=== PATIENT | male | born 2000 | race African-American/Black ===

== ENCOUNTER 2020-11-10 10:19 | Inpatient (IN) ==
[2020-11-10] MEDS ORDERED: ONDANSETRON INJ 2 MG/ML 2 ML VIAL IV STA (10:37)
[2020-11-10] MEDS ORDERED: SODIUM CHLORIDE 0.9% 1000ML 2,000 ML IV ONE (10:37)
--- NOTE | 2020-11-10 10:42 | Emergency Department Note ---
Impression & Plan DKA (diabetic ketoacidoses), Hypertension ED Provider Note NAME: MIKA BLAKE AGE: 20 SEX: M : 2000 ARRIVES VIA: Walk-In INFORMANT: Patient ED PROVIDER(S): Henri Rich DO CHIEF COMPLAINT: Weak, elevated blood pressure HPI: Patient is a 18-year-old male who presents the ER for not feeling well. He has felt drowsy for the past 24 to 48 hours. He vomited once yesterday and once again today. He is nauseated. He is a type II diabetic. He has been off his Metformin for several months and just recently restarted. He denies any head or neck pain. He does admit to some dizziness which last for short period time but now has abated. Denies any chest pain shortness of breath. Admits to some dysuria and frequency. ROS: See above HPI for pertinent positives & negatives. A total of 10 systems reviewed and were otherwise negative. PAST MEDICAL HISTORY:See Below PAST SURGICAL HISTORY:See Below FAMILY HISTORY:See Below SOCIAL HISTORY:See Below HOME MEDICATIONS:See Below ALLERGIES:See Below VITALS:See Below PHYSICAL EXAMINATION: GENERAL: Sitting up in bed, alert, well appearing, well nourished, no distress, non-toxic EYE EXAM: normal conjunctiva. PERRL and EOM's intact. OROPHARYNX: no exudate, no erythema, lips, buccal mucosa, and tongue normal and mucous membranes are moist NECK: supple, no nuchal rigidity, no adenopathy, non-tender LUNGS: Clear to auscultation. Normal chest wall mechanics HEART: no murmurs, S1 normal and S2 normal ABDOMEN: abdomen soft, non-tender, normo-active bowel sounds, no masses, no rebound or guarding. UPPER EXTREMITIES: upper extremities are grossly normal. LOWER EXTREMITIES: No pitting edema. NEURO EXAM: Normal sensorium, cranial nerves II-XII intact, normal speech, no weakness of arms, no weakness of legs. No drift. Finger to nose intact. Gross sensation intact. Ambulates without difficulty. MEDICAL DECISION MAKING: Patient is a 20-year-old male who presents the ER for not feeling well and vomiting once yesterday and once this morning. He has been off his metformin for several months and just restarted it. IV was established blood work was obtained. Labs show no significant leukocytosis or anemia. BMP with mild hyponatremia and a CO2 of 19 and a gap of 24. Blood sugar of nearly 800. This is consistent with DKA. Creatinine 1.5. LFTs bilirubin was unremarkable. UA with +2 ketones. He has no other complaints at this time. CT head was negative. Patient was updated bedside. He was given a total of 2 L of normal saline as well as 2 L of normal soft. He was started on insulin drip and given insulin bolus. He was updated bedside discussed with hospitalist admitted for further work-up. ABG does show a pH of 7.3 with a CO2 of 51. Triage Nursing notes reviewed. Limited review of prior medical records performed Vital Signs: reviewed and remarkable for HTN and tachy Differential diagnosis: Infection, dehydration, metabolic abnormality, hypo/hyperglycemia, electrolyte disturbance, anemia, hypoxia, cardiac sources, intracerebral event, toxicologic, neurologic, as well as other pathologies. ER treatment provided: See below Diagnostics interpreted by me: ECG: none Cardiac Monitoring: An order was placed for continuous cardiac monitoring. The monitor shows a rate of 72 with sinus rhythm. Laboratory studies: As stated above and show below. Imaging studies: CT head was unremarkable Consultation(s): Discussed with Dr. Timothy Blanca for further evaluation Procedures: none Critical Care: I have personally spent 33 minutes of critical care time in the direct management of this patient. This includes bedside care, interpretation of diagnostic studies, and testing, discussion with consultants, patient, and family members, and other required patient management activities. This 33 minutes is in excess of all separately billable procedures. Past Med/Surg History Medical History (Updated 11/10/20 @ 14:26 by JOSE EDUARDO Rosa) Acute kidney injury Diabetic coma with ketoacidosis DMII (diabetes mellitus, type 2) HHNC (hyperglycemic hyperosmolar nonketotic coma) Obesity Rhabdomyolysis Family History (Updated 11/10/20 @ 13:41 by JOSE EDUARDO Rosa) Mother Diabetes Heart disease Kidney disease Social History Smoking Status: Former smoker Hx Alcohol Use: No Hx Substance Use: No Preferred Language: [place]ian Communication Ability: Effective Director Of Community Life Required: No Beliefs That Will Affect Care: None Current Living Situation: Alone Other Information That Helps Us Care for You: No Feels Safe at Home: Yes Safety Concerns: Feels Safe At This Time Assistive Devices: None Allergies Allergies Allergy/AdvReac Type Severity Reaction Status Date / Time No Known Allergies Allergy Unverified 11/10/20 11:00 Home Meds Home Medications Medication Instructions Recorded Confirmed metformin 1,000 mg PO BID 11/10/20 11/10/20 Results & Data (ED) Vital Signs Vital Signs - 24 hr 11/10/20 10:20 11/10/20 11:00 11/10/20 12:22 Temperature 36.7 C Temperature Source Temporal Artery Scan Pulse Rate 110 H Pulse Rate [Right Finger] 78 Respiratory Rate 18 20 Respiratory Effort / Characteristics Non-Labored Spontaneous Non-Labored Respiratory Depth Normal Normal Respiratory Pattern Regular Blood Pressure 157/98 H Blood Pressure [Left Arm] 150/87 H Blood Pressure Mean 117 Blood Pressure Mean [Left Arm] 108 Blood Pressure Position Sitting Pulse Oximetry 98 98 97 Oxygen Delivery Method Room Air Room Air Room Air Sepsis Recent Fever Within 48 Hours No Sepsis New/Unexplained Change in Mental Status N/A Sepsis Action Taken by Nursing No Action Required 11/10/20 14:51 Temperature Temperature Source Pulse Rate 97 H Pulse Rate [Right Finger] Respiratory Rate 20 Respiratory Effort / Characteristics Respiratory Depth Respiratory Pattern Blood Pressure 127/76 Blood Pressure [Left Arm] Blood Pressure Mean Blood Pressure Mean [Left Arm] Blood Pressure Position Pulse Oximetry 99 Oxygen Delivery Method Room Air Sepsis Recent Fever Within 48 Hours Sepsis New/Unexplained Change in Mental Status Sepsis Action Taken by Nursing Laboratory Data Result diagrams: 11/10/20 10:50 11/10/20 10:50 Lab Results 11/10/20 11/10/20 11/10/20 Range/Units 10:44 10:45 10:50 WBC 7.70 (4.8-10.8) K/uL RBC 4.98 (4.7-6.1) M/uL Hgb 16.0 (14.0-18.0) g/dL POC Hgb (14.0-18.0) g/dl Hct 45.2 (42-52) % POC Hct (42-52) % MCV 90.8 (80-100) fL MCH 32.1 (25-34) pg MCHC 35.4 (32-36) g/dL RDW Std Deviation 45.4 (36.4-46.3) fL RDW Coeff of Antony 13.9 (11.5-14.5) % Plt Count 202 (130-400) K/uL MPV 12.4 H (7.4-10.4) fL Immature Gran % (Auto) 0.3 % Neut % (Auto) 69.9 % Lymph % (Auto) 22.3 % [place] % (Auto) 6.4 % Eos % (Auto) 1.0 % Baso % (Auto) 0.1 % Neut # (Auto) 5.38 (1.4-6.5) K/uL Lymph # (Auto) 1.72 (1.2-3.4) K/uL [place] # (Auto) 0.49 (0.11-0.59) K/uL Eos # (Auto) 0.08 (0-0.5) K/uL Baso # (Auto) 0.01 (0-0.2) K/uL Immature Gran # (Auto) 0.02 (0.00-0.02) K/uL VBG pH (7.36-7.41) VBG pCO2 (38-50) mmHg VBG pO2 mmHg VBG HCO3 mmol/L VBG O2 Saturation % VBG Base Excess mEq/L Barometric Pressure mm/Hg POC Sodium (135-144) mmol/L Sodium (136-145) mmol/L POC Potassium (3.3-5.0) mmol/L Potassium (3.5-5.1) mmol/L POC Chloride (101-112) mmol/L Chloride (98-107) mmol/L Carbon Dioxide (21-32) mmol/L POC Total CO2 (24-31) mmol/L Anion Gap (3-11) POC Anion Gap (16-25) mmol/L POC BUN (7-18) mg/dl BUN (7-18) mg/dl Creatinine (0.6-1.4) mg/dl POC Creatinine (0.6-1.3) mg/dl Est Cr Clr Drug Dosing ml/min Est GFR ( Amer) Est GFR (Non-Af Amer) BUN/Creatinine Ratio (10-20) Glucose (70-99) mg/dl POC Glucose > 600 H* > 600 H* (70-99) mg/dl POC Glucose (other) (70-99) mg/dl Lactate Calcium (8.5-10.1) mg/dl POC Ioniz Calcium N[place]omi (1.12-1.32) mmol/l Ionized Calcium (1.12-1.32) mmol/L Phosphorus (2.5-4.9) mg/dl Magnesium (1.8-2.4) mg/dl Total Bilirubin (0.2-1) mg/dl AST (15-37) U/L ALT (12-78) U/L Alkaline Phosphatase (45-117) U/L Total Protein (6.4-8.2) gm/dl Albumin (3.4-5.0) gm/dl Globulin (2.5-4.0) gm/dl Albumin/Globulin Ratio (0.9-2) Lipase (73-393) U/L Beta-Hydroxybutyric Acd (0.2-2.81) mg/dl Urine Color Urine Appearance (Clear) Urine pH (4.5-7.5) Ur Specific [place] (1.000-1.030) Urine Protein (Negative) Urine Glucose (UA) (Negative) Urine Ketones (Negative) Urine Blood (Negative) Urine Nitrite (Negative) Urine Bilirubin (Negative) Urine Urobilinogen (Negative) Ur Leukocyte Esterase (Negative) COVID-19 Eval Order SARS-CoV-2, RNA, NAAT (NEGATIVE) 11/10/20 11/10/20 11/10/20 Range/Units 10:50 10:50 10:50 WBC (4.8-10.8) K/uL RBC (4.7-6.1) M/uL Hgb (14.0-18.0) g/dL POC Hgb 16.0 (14.0-18.0) g/dl Hct (42-52) % POC Hct 47 (42-52) % MCV (80-100) fL MCH (25-34) pg MCHC (32-36) g/dL RDW Std Deviation (36.4-46.3) fL RDW Coeff of Antony (11.5-14.5) % Plt Count (130-400) K/uL MPV (7.4-10.4) fL Immature Gran % (Auto) % Neut % (Auto) % Lymph % (Auto) % [place] % (Auto) % Eos % (Auto) % Baso % (Auto) % Neut # (Auto) (1.4-6.5) K/uL Lymph # (Auto) (1.2-3.4) K/uL [place] # (Auto) (0.11-0.59) K/uL Eos # (Auto) (0-0.5) K/uL Baso # (Auto) (0-0.2) K/uL Immature Gran # (Auto) (0.00-0.02) K/uL VBG pH (7.36-7.41) VBG pCO2 (38-50) mmHg VBG pO2 mmHg VBG HCO3 mmol/L VBG O2 Saturation % VBG Base Excess mEq/L Barometric Pressure mm/Hg POC Sodium 130 L (135-144) mmol/L Sodium 130 L (136-145) mmol/L POC Potassium 4.7 (3.3-5.0) mmol/L Potassium 4.7 (3.5-5.1) mmol/L POC Chloride 99 L (101-112) mmol/L Chloride 93 L (98-107) mmol/L Carbon Dioxide 19 L (21-32) mmol/L POC Total CO2 21 L (24-31) mmol/L Anion Gap 24.0 H (3-11) POC Anion Gap 16.0 (16-25) mmol/L POC BUN 16 (7-18) mg/dl BUN 18 (7-18) mg/dl Creatinine 1.55 H (0.6-1.4) mg/dl POC Creatinine 1.0 (0.6-1.3) mg/dl Est Cr Clr Drug Dosing 128.0 ml/min Est GFR ( Amer) 72.6 Est GFR (Non-Af Amer) 62.6 BUN/Creatinine Ratio 10.6 (10-20) Glucose 783 H* (70-99) mg/dl POC Glucose (70-99) mg/dl POC Glucose (other) > 700 H* (70-99) mg/dl Lactate Calcium 10.0 (8.5-10.1) mg/dl POC Ioniz Calcium [place] 1.27 (1.12-1.32) mmol/l Ionized Calcium (1.12-1.32) mmol/L Phosphorus 3.2 (2.5-4.9) mg/dl Magnesium 2.3 (1.8-2.4) mg/dl Total Bilirubin 0.7 (0.2-1) mg/dl AST 6 L (15-37) U/L ALT 32 (12-78) U/L Alkaline Phosphatase 108 (45-117) U/L Total Protein 8.3 H (6.4-8.2) gm/dl Albumin 4.0 (3.4-5.0) gm/dl Globulin 4.3 H (2.5-4.0) gm/dl Albumin/Globulin Ratio 0.9 (0.9-2) Lipase 169 (73-393) U/L Beta-Hydroxybutyric Acd 50.69 H (0.2-2.81) mg/dl Urine Color Urine Appearance (Clear) Urine pH (4.5-7.5) Ur Specific [place] (1.000-1.030) Urine Protein (Negative) Urine Glucose (UA) (Negative) Urine Ketones (Negative) Urine Blood (Negative) Urine Nitrite (Negative) Urine Bilirubin (Negative) Urine Urobilinogen (Negative) Ur Leukocyte Esterase (Negative) COVID-19 Eval Order SARS-CoV-2, RNA, NAAT (NEGATIVE) 11/10/20 11/10/20 11/10/20 Range/Units 11:15 11:54 12:25 WBC (4.8-10.8) K/uL RBC (4.7-6.1) M/uL Hgb (14.0-18.0) g/dL POC Hgb (14.0-18.0) g/dl Hct (42-52) % POC Hct (42-52) % MCV (80-100) fL MCH (25-34) pg MCHC (32-36) g/dL RDW Std Deviation (36.4-46.3) fL RDW Coeff of Antony (11.5-14.5) % Plt Count (130-400) K/uL MPV (7.4-10.4) fL Immature Gran % (Auto) % Neut % (Auto) % Lymph % (Auto) % [place] % (Auto) % Eos % (Auto) % Baso % (Auto) % Neut # (Auto) (1.4-6.5) K/uL Lymph # (Auto) (1.2-3.4) K/uL [place] # (Auto) (0.11-0.59) K/uL Eos # (Auto) (0-0.5) K/uL Baso # (Auto) (0-0.2) K/uL Immature Gran # (Auto) (0.00-0.02) K/uL VBG pH (7.36-7.41) VBG pCO2 (38-50) mmHg VBG pO2 mmHg VBG HCO3 mmol/L VBG O2 Saturation % VBG Base Excess mEq/L Barometric Pressure mm/Hg POC Sodium (135-144) mmol/L Sodium (136-145) mmol/L POC Potassium (3.3-5.0) mmol/L Potassium (3.5-5.1) mmol/L POC Chloride (101-112) mmol/L Chloride (98-107) mmol/L Carbon Dioxide (21-32) mmol/L POC Total CO2 (24-31) mmol/L Anion Gap (3-11) POC Anion Gap (16-25) mmol/L POC BUN (7-18) mg/dl BUN (7-18) mg/dl Creatinine (0.6-1.4) mg/dl POC Creatinine (0.6-1.3) mg/dl Est Cr Clr Drug Dosing ml/min Est GFR ( Amer) Est GFR (Non-Af Amer) BUN/Creatinine Ratio (10-20) Glucose (70-99) mg/dl POC Glucose > 600 H* (70-99) mg/dl POC Glucose (other) (70-99) mg/dl Lactate Calcium (8.5-10.1) mg/dl POC Ioniz Calcium [place] (1.12-1.32) mmol/l Ionized Calcium (1.12-1.32) mmol/L Phosphorus (2.5-4.9) mg/dl Magnesium (1.8-2.4) mg/dl Total Bilirubin (0.2-1) mg/dl AST (15-37) U/L ALT (12-78) U/L Alkaline Phosphatase (45-117) U/L Total Protein (6.4-8.2) gm/dl Albumin (3.4-5.0) gm/dl Globulin (2.5-4.0) gm/dl Albumin/Globulin Ratio (0.9-2) Lipase (73-393) U/L Beta-Hydroxybutyric Acd (0.2-2.81) mg/dl Urine Color Yellow Urine Appearance Clear (Clear) Urine pH 5.5 (4.5-7.5) Ur Specific [place] 1.032 H (1.000-1.030) Urine Protein Negative (Negative) Urine Glucose (UA) 3+ H (Negative) Urine Ketones 2+ H (Negative) Urine Blood Negative (Negative) Urine Nitrite Negative (Negative) Urine Bilirubin Negative (Negative) Urine Urobilinogen Negative (Negative) Ur Leukocyte Esterase Negative (Negative) COVID-19 Eval Order Covid19 IDNow atMGAC SARS-CoV-2, RNA, NAAT (NEGATIVE) 11/10/20 11/10/20 11/10/20 Range/Units 12:25 12:51 12:54 WBC (4.8-10.8) K/uL RBC (4.7-6.1) M/uL Hgb (14.0-18.0) g/dL POC Hgb (14.0-18.0) g/dl Hct (42-52) % POC Hct (42-52) % MCV (80-100) fL MCH (25-34) pg MCHC (32-36) g/dL RDW Std Deviation (36.4-46.3) fL RDW Coeff of Antony (11.5-14.5) % Plt Count (130-400) K/uL MPV (7.4-10.4) fL Immature Gran % (Auto) % Neut % (Auto) % Lymph % (Auto) % [place] % (Auto) % Eos % (Auto) % Baso % (Auto) % Neut # (Auto) (1.4-6.5) K/uL Lymph # (Auto) (1.2-3.4) K/uL [place] # (Auto) (0.11-0.59) K/uL Eos # (Auto) (0-0.5) K/uL Baso # (Auto) (0-0.2) K/uL Immature Gran # (Auto) (0.00-0.02) K/uL VBG pH 7.30 L (7.36-7.41) VBG pCO2 51 H (38-50) mmHg VBG pO2 24 mmHg VBG HCO3 24 mmol/L VBG O2 Saturation < 60.0 % VBG Base Excess -2.9 mEq/L Barometric Pressure 733.6 mm/Hg POC Sodium (135-144) mmol/L Sodium (136-145) mmol/L POC Potassium (3.3-5.0) mmol/L Potassium (3.5-5.1) mmol/L POC Chloride (101-112) mmol/L Chloride (98-107) mmol/L Carbon Dioxide (21-32) mmol/L POC Total CO2 (24-31) mmol/L Anion Gap (3-11) POC Anion Gap (16-25) mmol/L POC BUN (7-18) mg/dl BUN (7-18) mg/dl Creatinine (0.6-1.4) mg/dl POC Creatinine (0.6-1.3) mg/dl Est Cr Clr Drug Dosing ml/min Est GFR ( Amer) Est GFR (Non-Af Amer) BUN/Creatinine Ratio (10-20) Glucose (70-99) mg/dl POC Glucose 456 H* (70-99) mg/dl POC Glucose (other) (70-99) mg/dl Lactate Calcium (8.5-10.1) mg/dl POC Ioniz Calcium [place] (1.12-1.32) mmol/l Ionized Calcium (1.12-1.32) mmol/L Phosphorus (2.5-4.9) mg/dl Magnesium (1.8-2.4) mg/dl Total Bilirubin (0.2-1) mg/dl AST (15-37) U/L ALT (12-78) U/L Alkaline Phosphatase (45-117) U/L Total Protein (6.4-8.2) gm/dl Albumin (3.4-5.0) gm/dl Globulin (2.5-4.0) gm/dl Albumin/Globulin Ratio (0.9-2) Lipase (73-393) U/L Beta-Hydroxybutyric Acd (0.2-2.81) mg/dl Urine Color Urine Appearance (Clear) Urine pH (4.5-7.5) Ur Specific [place] (1.000-1.030) Urine Protein (Negative) Urine Glucose (UA) (Negative) Urine Ketones (Negative) Urine Blood (Negative) Urine Nitrite (Negative) Urine Bilirubin (Negative) Urine Urobilinogen (Negative) Ur Leukocyte Esterase (Negative) COVID-19 Eval Order SARS-CoV-2, RNA, NAAT NEGATIVE (NEGATIVE) 11/10/20 11/10/20 11/10/20 Range/Units 12:55 12:55 13:49 WBC (4.8-10.8) K/uL RBC (4.7-6.1) M/uL Hgb (14.0-18.0) g/dL POC Hgb (14.0-18.0) g/dl Hct (42-52) % POC Hct (42-52) % MCV (80-100) fL MCH (25-34) pg MCHC (32-36) g/dL RDW Std Deviation (36.4-46.3) fL RDW Coeff of Antony (11.5-14.5) % Plt Count (130-400) K/uL MPV (7.4-10.4) fL Immature Gran % (Auto) % Neut % (Auto) % Lymph % (Auto) % [place] % (Auto) % Eos % (Auto) % Baso % (Auto) % Neut # (Auto) (1.4-6.5) K/uL Lymph # (Auto) (1.2-3.4) K/uL [place] # (Auto) (0.11-0.59) K/uL Eos # (Auto) (0-0.5) K/uL Baso # (Auto) (0-0.2) K/uL Immature Gran # (Auto) (0.00-0.02) K/uL VBG pH (7.36-7.41) VBG pCO2 (38-50) mmHg VBG pO2 mmHg VBG HCO3 mmol/L VBG O2 Saturation % VBG Base Excess mEq/L Barometric Pressure mm/Hg POC Sodium (135-144) mmol/L Sodium (136-145) mmol/L POC Potassium (3.3-5.0) mmol/L Potassium (3.5-5.1) mmol/L POC Chloride (101-112) mmol/L Chloride (98-107) mmol/L Carbon Dioxide (21-32) mmol/L POC Total CO2 (24-31) mmol/L Anion Gap (3-11) POC Anion Gap (16-25) mmol/L POC BUN (7-18) mg/dl BUN (7-18) mg/dl Creatinine (0.6-1.4) mg/dl POC Creatinine (0.6-1.3) mg/dl Est Cr Clr Drug Dosing ml/min Est GFR ( Amer) Est GFR (Non-Af Amer) BUN/Creatinine Ratio (10-20) Glucose (70-99) mg/dl POC Glucose (70-99) mg/dl POC Glucose (other) (70-99) mg/dl Lactate Cancelled Cancelled Calcium (8.5-10.1) mg/dl POC Ioniz Calcium [place] (1.12-1.32) mmol/l Ionized Calcium 1.25 (1.12-1.32) mmol/L Phosphorus (2.5-4.9) mg/dl Magnesium (1.8-2.4) mg/dl Total Bilirubin (0.2-1) mg/dl AST (15-37) U/L ALT (12-78) U/L Alkaline Phosphatase (45-117) U/L Total Protein (6.4-8.2) gm/dl Albumin (3.4-5.0) gm/dl Globulin (2.5-4.0) gm/dl Albumin/Globulin Ratio (0.9-2) Lipase (73-393) U/L Beta-Hydroxybutyric Acd (0.2-2.81) mg/dl Urine Color Urine Appearance (Clear) Urine pH (4.5-7.5) Ur Specific [place] (1.000-1.030) Urine Protein (Negative) Urine Glucose (UA) (Negative) Urine Ketones (Negative) Urine Blood (Negative) Urine Nitrite (Negative) Urine Bilirubin (Negative) Urine Urobilinogen (Negative) Ur Leukocyte Esterase (Negative) COVID-19 Eval Order SARS-CoV-2, RNA, NAAT (NEGATIVE) 11/10/20 Range/Units 14:24 WBC (4.8-10.8) K/uL RBC (4.7-6.1) M/uL Hgb (14.0-18.0) g/dL POC Hgb (14.0-18.0) g/dl Hct (42-52) % POC Hct (42-52) % MCV (80-100) fL MCH (25-34) pg MCHC (32-36) g/dL RDW Std Deviation (36.4-46.3) fL RDW Coeff of Antony (11.5-14.5) % Plt Count (130-400) K/uL MPV (7.4-10.4) fL Immature Gran % (Auto) % Neut % (Auto) % Lymph % (Auto) % [place] % (Auto) % Eos % (Auto) % Baso % (Auto) % Neut # (Auto) (1.4-6.5) K/uL Lymph # (Auto) (1.2-3.4) K/uL [place] # (Auto) (0.11-0.59) K/uL Eos # (Auto) (0-0.5) K/uL Baso # (Auto) (0-0.2) K/uL Immature Gran # (Auto) (0.00-0.02) K/uL VBG pH (7.36-7.41) VBG pCO2 (38-50) mmHg VBG pO2 mmHg VBG HCO3 mmol/L VBG O2 Saturation % VBG Base Excess mEq/L Barometric Pressure mm/Hg POC Sodium (135-144) mmol/L Sodium (136-145) mmol/L POC Potassium (3.3-5.0) mmol/L Potassium (3.5-5.1) mmol/L POC Chloride (101-112) mmol/L Chloride (98-107) mmol/L Carbon Dioxide (21-32) mmol/L POC Total CO2 (24-31) mmol/L Anion Gap (3-11) POC Anion Gap (16-25) mmol/L POC BUN (7-18) mg/dl BUN (7-18) mg/dl Creatinine (0.6-1.4) mg/dl POC Creatinine (0.6-1.3) mg/dl Est Cr Clr Drug Dosing ml/min Est GFR ( Amer) Est GFR (Non-Af Amer) BUN/Creatinine Ratio (10-20) Glucose (70-99) mg/dl POC Glucose 377 H* (70-99) mg/dl POC Glucose (other) (70-99) mg/dl Lactate Calcium (8.5-10.1) mg/dl POC Ioniz Calcium [place] (1.12-1.32) mmol/l Ionized Calcium (1.12-1.32) mmol/L Phosphorus (2.5-4.9) mg/dl Magnesium (1.8-2.4) mg/dl Total Bilirubin (0.2-1) mg/dl AST (15-37) U/L ALT (12-78) U/L Alkaline Phosphatase (45-117) U/L Total Protein (6.4-8.2) gm/dl Albumin (3.4-5.0) gm/dl Globulin (2.5-4.0) gm/dl Albumin/Globulin Ratio (0.9-2) Lipase (73-393) U/L Beta-Hydroxybutyric Acd (0.2-2.81) mg/dl Urine Color Urine Appearance (Clear) Urine pH (4.5-7.5) Ur Specific [place] (1.000-1.030) Urine Protein (Negative) Urine Glucose (UA) (Negative) Urine Ketones (Negative) Urine Blood (Negative) Urine Nitrite (Negative) Urine Bilirubin (Negative) Urine Urobilinogen (Negative) Ur Leukocyte Esterase (Negative) COVID-19 Eval Order SARS-CoV-2, RNA, NAAT (NEGATIVE) Administered Medications Insulin Human Regular 250 (units/ Sodium Chloride) 250 mls @ 4.6 mls/hr IV .Q24H ANTHONY; Protocol Stop: 12/10/20 10:59 Last Titration: 11/10/20 14:40 Dose: 4.6 units/hr, 4.6 mls/hr Documented by: [id number] Cosigned by: [id number] Titration: 11/10/20 13:19 Dose: 4.6 units/hr, 4.6 mls/hr Documented by: [id number] Cosigned by: [id number] Admin: 11/10/20 11:56 Dose: 5.8 units/hr, 5.8 mls/hr Documented by: [id number] Cosigned by: [id number] Lactated Ringer's (Lr) 1,000 mls @ 250 mls/hr IV .Q4H ANTHONY Stop: 12/10/20 14:14 Last Admin: 11/10/20 14:41 Dose: 250 mls/hr Documented by: [id number] Discontinued Medications Sodium Chloride (Nss 1000ml) 2,000 mls @ 999 mls/hr IV .Q2H1M ONE Stop: 11/10/20 12:37 Last Infusion: 11/10/20 13:06 Dose: 0 mls/hr Documented by: [id number] Admin: 11/10/20 10:58 Dose: 999 mls/hr Documented by: [id number] Parenteral Electrolytes (Normosol-R) 2,000 mls @ 999 mls/hr IV .Q2H1M ONE Stop: 11/10/20 14:19 Last Infusion: 11/10/20 14:41 Dose: 0 mls/hr Documented by: [id number] Admin: 11/10/20 12:59 Dose: 999 mls/hr Documented by: [id number] Insulin Human Regular (Novolin-R Bolus From Bag) 6 units IV ONE ONE Stop: 11/10/20 11:46 Last Admin: 11/10/20 11:59 Dose: 6 units Documented by: [id number] Cosigned by: [id number] Ondansetron HCl (Ondansetron Inj 2 Mg/Ml 2 Ml Vial) 4 mg IV NOW STA Stop: 11/10/20 10:38 Last Admin: 11/10/20 10:58 Dose: 4 mg Documented by: [id number] Discharge Plan Visit Data Chief Complaint: Hypertension Stated Complaint: HIGH BLOOD PRESSURE/DIABETIC ED Provider: Henri Rich Discharge Problem: DKA (diabetic ketoacidoses), Hypertension Discharge Instructions Interventions: ED Discharge Assessment Last Done: 11/10/20 14:51 Forms Stand Alone Forms: 30 Second Showcase Prescriptions Prescriptions: No Action metformin 1,000 mg Tablet 1,000 mg PO BID RF: 0 Referrals Referrals: MONICA MENDOZA [Other] Discharge Problem: DKA (diabetic ketoacidoses) Qualifiers: Diabetes mellitus type: other specified (including YANELY) Diabetes mellitus complication detail: without coma Qualified Code(s): E13.10 - Other specified diabetes mellitus with ketoacidosis without coma Hypertension Qualifiers: Hypertension type: unspecified Qualified Code(s): I10 - Essential (primary) hypertension
[2020-11-10] MEDS ORDERED: SEVERE STRESS LEVEL ONE (10:52)
[2020-11-10] MEDS ORDERED: INSULIN PROTOCOL GOAL RANGE ONE (10:52)
[2020-11-10] MEDS ORDERED: INSULIN REGULAR 250 UNITS in SODIUM CHLORIDE 0.9% 247.5 ML IV SCH (11:00)
[2020-11-10 11:02] LABS: Basophils # (auto) 0.01 K/uL (0-0.2); Basophils % (auto) 0.1 %; Eosinophils # (auto) 0.08 K/uL (0-0.5); Hematocrit (blood only) 45.2 % (42-52); Immature Granulocytes # (auto) 0.02 K/uL (0.00-0.02); Immature Granulocytes % (auto) 0.3 %; Lymphocytes # (auto) 1.72 K/uL (1.2-3.4); Lymphocytes % (auto) 22.3 %; Mean Corpuscular Hemoglobin 32.1 pg (25-34); Mean Corpuscular Hgb Conc 35.4 g/dL (32-36); Mean Corpuscular Volume 90.8 fL (80-100); Mean Platelet Volume 12.4 fL (7.4-10.4); Monocytes # (auto) 0.49 K/uL (0.11-0.59); Monocytes % (auto) 6.4 %; Neutrophils # (auto) 5.38 K/uL (1.4-6.5); Neutrophils % (auto) 69.9 %; Platelet Count 202 K/uL (130-400); RDW Coefficient of Variation 13.9 % (11.5-14.5); RDW Standard Deviation 45.4 fL (36.4-46.3); Red Blood Count 4.98 M/uL (4.7-6.1)
[2020-11-10 11:03] LABS: iSTAT Blood Urea Nitrogen 16 mg/dl (7-18); iSTAT Carbon Dioxide 21 mmol/L (24-31); iSTAT Chloride 99 mmol/L (101-112); iSTAT Glucose > 700 mg/dl (70-99); iSTAT Hematocrit 47 % (42-52); iSTAT Ionized Calcium 1.27 mmol/l (1.12-1.32); iSTAT Potassium 4.7 mmol/L (3.3-5.0); iSTAT Sodium 130 mmol/L (135-144)
--- NOTE | 2020-11-10 11:09 | CT Scan Report ---
CT OF THE HEAD WITHOUT CONTRAST CLINICAL HISTORY: dizzy COMPARISON STUDY: No previous studies for comparison. CT DOSE: 537.48 mGy.cm TECHNIQUE: Helical axial images of the head were obtained without IV contrast. Automated exposure con trol was utilized for the study. A dose lowering technique was utilized adhering to the principles o f ALARA. FINDINGS: No acute intracranial hemorrhage, midline shift or mass effect is present. The ventricular system is unremarkable. The basal cisterns are patent. No extra-axial collections are present. There are no findings to suggest acute dural sinus thrombosis or acute territorial infarct. No significant calvarial abnormalities are present. Visualized portions of the sinuses and mastoid air cells are kenneth ar. IMPRESSION: No acute intracranial findings. ACT 112: Negative or not required by law. Electronically signed by: Sarath Mckenna M.D. 11/10/2020 11:08 AM
[2020-11-10 11:39] LABS: Appearance Urine Clear (Clear); Bilirubin Urine Negative (Negative); Blood Urine Negative (Negative); Color Urine Yellow; Glucose Urine UA 3+ (Negative); Ketones Urine 2+ (Negative); Leukocyte Esterase Urine Negative (Negative); Nitrite Urine Negative (Negative); Protein Urine Negative (Negative); Specific Gravity Urine 1.032 (1.000-1.030); Urobilinogen Urine Negative (Negative); pH Urine 5.5 (4.5-7.5)
[2020-11-10] MEDS ORDERED: NovoLIN-R BOLUS FROM BAG IV ONE (11:45)
[2020-11-10 12:04] LABS: Albumin Globulin Ratio 0.9 (0.9-2); BUN Creatinine Ratio 10.6 (10-20); Bilirubin,Total 0.7 mg/dl (0.2-1); Est GFR (African American) 72.6; Est GFR (Non-African American) 62.6; Globulin 4.3 gm/dl (2.5-4.0); Potassium 4.7 mmol/L (3.5-5.1); Total Protein 8.3 gm/dl (6.4-8.2)
[2020-11-10] MEDS ORDERED: GLUCOSE 40% GEL 15 GM TUBE PO PRN (12:15)
[2020-11-10] MEDS ORDERED: GLUCAGON FOR INJ 1 MG VIAL IM PRN (12:15)
[2020-11-10] MEDS ORDERED: GLUCOSE 10 TABS/TUBE PO PRN (12:15)
[2020-11-10] MEDS ORDERED: DEXTROSE 50% 50 ML SYRINGE IV PRN (12:15)
[2020-11-10] MEDS ORDERED: CARBOHYDRATES FOR HYPOGLYCEMIA PO PRN (12:15)
[2020-11-10] MEDS ORDERED: NORMOSOL-R 2,000 ML IV ONE (12:19)
[2020-11-10 12:46] LABS: Beta-Hydroxybutyrate 50.69 mg/dl (0.2-2.81)
[2020-11-10 13:09] LABS: Base Excess VBG -2.9 mEq/L; HCO3 VBG 24 mmol/L; PCO2 VBG 51 mmHg (38-50); PO2 VBG 24 mmHg
[2020-11-10 13:14] LABS: Oxygen Saturation VBG < 60.0 %
--- NOTE | 2020-11-10 13:42 | History & Physical Report ---
Date of Service November 10, 2020 Assessment & Plan (1) Diabetes mellitus with nonketotic hyperosmolarity: HHNK- secondary to non-compliance. - BG >600, HCO3 19; mild ketones, PH 7.3, - Insulin drip per protocol- expect patient to respond adequately once volume resuscitation continues - Insulin drip currently at 0.05 units per kg per hour---> RN titrate per protocol - Dextrose and KCL to fluids when BG gets to 250 - BMP q 4 hours---> Goal K>4, Mag >2, iCA >1.18, Po4 > 2.2 - Base deficit improved following 2L 0.9%saline, will place on Lactated ringers at 250 ml hour for 1 more liter, then slow rate down to ~100 ml/hour. - Follow urine output and HCO3 and glucose - Transition with pharmacy consult (appreciate assistance)- ensure adequate resus and perfusion if re-initiating metformin - conservation educator consult - Nutrition consult - Neuro checks while in [facility] (2) Acidosis: Mixed respiratory metabolic acidosis - Gap originally 16 - after resuscitation primary respiratory with appropriate compensation, will improve as mentation and fatigue improve. - Lactate pending--> redraw secondary to hemolysis (3) DMII (diabetes mellitus, type 2): As above. A1C in morning lipids in morning (4) Obesity: Nutrition and diabetic education as above (5) Hypertension: Patient denies chronic elevation----- will follow while in house, continue with resuscitation. No acute treatment at this time History of Present Illness Chief Complaint: Nausea Primary Care Provider: MONICA MENDOZA 20 YOM with significant history of new onset of diabetes in March 2020 which resulted in patient going into diabetic coma, hyperglycemia and rhabdomyolysis. This ordeal occurred in [place], and he was discharged on Metformin after being diagnosed as type II. The patient states that he stopped his Metformin a couple of months ago, because he didn't feel as he needed it. Patient just recently started taking his metformin again starting on Wednesday because of the way he was feeling. 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 The patient started feeling fatigued, nauseated, and drinking more; which prompted him to come to the emergency room. In the ER the patient was noted to be hyperglycemic >600, with a HCO3 of 19. The patient denies any other feelings of illness, or any other associated symptoms. The patient was started on insulin drip with bolus given 2L 0.9% saline, CT scan of head performed for complaint of dizziness. Patient will be admitted for HHNS, volume resuscitation, electrolyte monitoring, and insulin drip with transition to either orals or insulin therapy. Patient informed of plan. Patient is also a full code. Allergies Allergy/AdvReac Type Severity Reaction Status Date / Time No Known Allergies Allergy Unverified 11/10/20 11:00 Home Medications Medication Instructions Recorded Confirmed Type metformin 1,000 mg PO BID 11/10/20 11/10/20 History Past Med/Surg History Medical History (Updated 11/10/20 @ 14:26 by JOSE EDUARDO Rosa) Acute kidney injury Diabetic coma with ketoacidosis DMII (diabetes mellitus, type 2) HHNC (hyperglycemic hyperosmolar nonketotic coma) Obesity Rhabdomyolysis Family History (Updated 11/10/20 @ 13:41 by JOSE EDUARDO Rosa) Mother Diabetes Heart disease Kidney disease Social History Smoking Status: Former smoker Hx Alcohol Use: No Hx Substance Use: No Preferred Language: Slovenian Communication Ability: Effective Radiological Technologist Required: No Beliefs That Will Affect Care: None Current Living Situation: Alone Other Information That Helps Us Care for You: No Feels Safe at Home: Yes Safety Concerns: Feels Safe At This Time Assistive Devices: None Review of Systems Review of Systems: REVIEW OF SYSTEMS: Constitutional: No fever, sweats or chills Eyes: No diplopia, no worsening or blurred vision ENT: normal hearing, no trouble swallowing Respiratory: No cough, sputum, dyspnea at rest or on exertion Cardiovascular: No chest pain, tightness or palpitations Abdomen: (+)nausea, (-) pain or vomiting, diarrhea or constipation Musculoskeletal: No joint pain, calf pain, swelling Neurologic: No weakness, numbness/tingling, or balance problems Psychiatric: No anxiety or depression Skin: No rash or itch Physical Exam Physical Exam: PHYSICAL EXAM: General: awake, alert, keenly responsive Head: Normocephalic, atraumatic ENT: PERRL, EOMI, no pharyngeal exudate, mucous membranes dry Neuro: AAO x 3, speech clear and appropriate, strength intact bilaterally 5/5, sensation intact and equal all extremities and no pronator drift Chest: equal rise and fall of the chest, no accessory muscle use, no heaves or thirlls, Clear to auscultation, on room air, Cardiac: Regular rate and rhythm, telemetry reviewed, skin warm dry, cap refill <3 seconds, peripheral pulses +2 no JVD, no murmur. GI: NABS x 4 quadrants, soft, nontender to palpation, no rebound, guarding or tenderness : Spontaneously voiding, no pain, no CVA tenderness, Extremities: Normal inspection, no peripheral edema or erythema, calfs nontender to palpation Psych: Normal mood and affect Skin: no rash or erythema Results & Data Results & Data ([facility]) Vital Signs (Past 12 Hours) Vital Signs Temp Pulse Pulse Resp BP BP Pulse Ox 11/10/20 12:22 78 20 150/87 H 97 11/10/20 11:00 98 11/10/20 10:20 36.7 C 110 H 18 157/98 H 98 Laboratory Results Abnormal lab results 11/10/20 11/10/20 11/10/20 Range/Units 10:44 10:45 10:50 MPV 12.4 H (7.4-10.4) fL VBG pH (7.36-7.41) VBG pCO2 (38-50) mmHg POC Sodium (135-144) mmol/L Sodium (136-145) mmol/L POC Chloride (101-112) mmol/L Chloride (98-107) mmol/L Carbon Dioxide (21-32) mmol/L POC Total CO2 (24-31) mmol/L Anion Gap (3-11) Creatinine (0.6-1.4) mg/dl Glucose (70-99) mg/dl POC Glucose > 600 H* > 600 H* (70-99) mg/dl POC Glucose (other) (70-99) mg/dl AST (15-37) U/L Total Protein (6.4-8.2) gm/dl Globulin (2.5-4.0) gm/dl Beta-Hydroxybutyric Acd (0.2-2.81) mg/dl Ur Specific [place] (1.000-1.030) Urine Glucose (UA) (Negative) Urine Ketones (Negative) 11/10/20 11/10/20 11/10/20 Range/Units 10:50 10:50 11:15 MPV (7.4-10.4) fL VBG pH (7.36-7.41) VBG pCO2 (38-50) mmHg POC Sodium 130 L (135-144) mmol/L Sodium 130 L (136-145) mmol/L POC Chloride 99 L (101-112) mmol/L Chloride 93 L (98-107) mmol/L Carbon Dioxide 19 L (21-32) mmol/L POC Total CO2 21 L (24-31) mmol/L Anion Gap 24.0 H (3-11) Creatinine 1.55 H (0.6-1.4) mg/dl Glucose 783 H* (70-99) mg/dl POC Glucose (70-99) mg/dl POC Glucose (other) > 700 H* (70-99) mg/dl AST 6 L (15-37) U/L Total Protein 8.3 H (6.4-8.2) gm/dl Globulin 4.3 H (2.5-4.0) gm/dl Beta-Hydroxybutyric Acd 50.69 H (0.2-2.81) mg/dl Ur Specific [place] 1.032 H (1.000-1.030) Urine Glucose (UA) 3+ H (Negative) Urine Ketones 2+ H (Negative) 11/10/20 11/10/20 11/10/20 Range/Units 11:54 12:51 12:54 MPV (7.4-10.4) fL VBG pH 7.30 L (7.36-7.41) VBG pCO2 51 H (38-50) mmHg POC Sodium (135-144) mmol/L Sodium (136-145) mmol/L POC Chloride (101-112) mmol/L Chloride (98-107) mmol/L Carbon Dioxide (21-32) mmol/L POC Total CO2 (24-31) mmol/L Anion Gap (3-11) Creatinine (0.6-1.4) mg/dl Glucose (70-99) mg/dl POC Glucose > 600 H* 456 H* (70-99) mg/dl POC Glucose (other) (70-99) mg/dl AST (15-37) U/L Total Protein (6.4-8.2) gm/dl Globulin (2.5-4.0) gm/dl Beta-Hydroxybutyric Acd (0.2-2.81) mg/dl Ur Specific [place] (1.000-1.030) Urine Glucose (UA) (Negative) Urine Ketones (Negative) Lactate pending Diagnostic Findings CT OF THE HEAD WITHOUT CONTRAST CLINICAL HISTORY: dizzy COMPARISON STUDY: No previous studies for comparison. CT DOSE: 537.48 mGy.cm TECHNIQUE: Helical axial images of the head were obtained without IV contrast. Automated exposure control was utilized for the study. A dose lowering technique was utilized adhering to the principles of ALARA. FINDINGS: No acute intracranial hemorrhage, midline shift or mass effect is present. The ventricular system is unremarkable. The basal cisterns are patent. No extra-axial collections are present. There are no findings to suggest acute dural sinus thrombosis or acute territorial infarct. No significant calvarial abnormalities are present. Visualized portions of the sinuses and mastoid air cells are clear. IMPRESSION: No acute intracranial findings. XR chest 1V portable CLINICAL HISTORY: rule out infectious process. DKA/HHNS COMPARISON STUDY: No previous studies for comparison. FINDINGS: Lung volumes are normal. Lungs are clear. There is no pneumothorax or pleural effusion. Cardiac size is normal. Mediastinal contours are normal. There is no evidence for pulmonary edema. IMPRESSION: No acute cardiopulmonary findings. Medications Administered Insulin Human Regular 250 (units/ Sodium Chloride) 250 mls @ 4.6 mls/hr IV .Q24H [facility]; Protocol Stop: 12/10/20 10:59 Last Titration: 11/10/20 13:19 Dose: 4.6 units/hr, 4.6 mls/hr Documented by: [id number] Cosigned by: [id number] Admin: 11/10/20 11:56 Dose: 5.8 units/hr, 5.8 mls/hr Documented by: [id number] Cosigned by: [id number] Parenteral Electrolytes (Normosol-R) 2,000 mls @ 999 mls/hr IV .Q2H1M ONE Stop: 11/10/20 14:19 Last Admin: 11/10/20 12:59 Dose: 999 mls/hr Documented by: [id number] Discontinued Medications Sodium Chloride (Nss 1000ml) 2,000 mls @ 999 mls/hr IV .Q2H1M ONE Stop: 11/10/20 12:37 Last Infusion: 11/10/20 13:06 Dose: 0 mls/hr Documented by: [id number] Admin: 11/10/20 10:58 Dose: 999 mls/hr Documented by: [id number] Insulin Human Regular (Novolin-R Bolus From Bag) 6 units IV ONE ONE Stop: 11/10/20 11:46 Last Admin: 11/10/20 11:59 Dose: 6 units Documented by: [id number] Cosigned by: [id number] Ondansetron HCl (Ondansetron Inj 2 Mg/Ml 2 Ml Vial) 4 mg IV NOW STA Stop: 11/10/20 10:38 Last Admin: 11/10/20 10:58 Dose: 4 mg Documented by: [id number] Code Status & VTE Plan Code Status Full ambulation/Scds Supervising Physician Co-Signing Physician Notes Attending Attestation and Admission Note: Pt seen and examined, chart reviewed, care plan d/w JOSE EDUARDO Zambrano. I agree w/ the rose components of his documentation. 20yo AA male with T2DM dx in 2019 - on metformin monotherapy only - presenting with severe hyperglycemia. He has had associated fatigue, nausea, and polyuria/polydipsia. Presentation and labs most c/w HONK, however he does have mild AG acidosis along with ketones in the urine that could suggest DKA. Some of his acidosis on VBG is c/w respiratory acidosis. In the ER he was given 2 L of fluids and insulin drip was initiated. During my assessment he c/o mouth irritation and white spots in the corners of his mouth, along with white/milky rash on head of penis that is pruritic. He requested STD testing. PMH/PSH/allergies/meds/sochx/famhx - reviewed vitals - afebrile, VSS gen - obese, NAD, nontoxic mouth - thrush plaques on tongue as well as corners of mouth neck - acanthosis nigricans heart - RRR, s1 s2, no murmur lungs - CTA b/l abd - soft, NT, liver edge and spleen edge palpable, BS+ ext - no edema - balanitis 2nd james; small papules in mons region look like folliculitis labs reviewed cxr and CT head reviewed a1c pending A/P: 1. HONK (vs mild DKA) - favor former - cont IV fluid replacement, IV insulin per protocol, serial labs, a1c. DM educator consult. Nutrition consult. Check TFTs. Pharmacy glycemic consult appreciated. Hold metformin. 2. acidosis - combination of respiratory acidosis, AG metabolic acidosis. Respiratory acidosis could be due to undiagnosed JORDEN/OBH in setting of his hyperglycemia. Rx #1. Needs sleep study as outpatient. 3. candidiasis of mouth - nystatin solution qid. 4. balanitis due to james - nystatin cream. 5. folliculitis - bactroban ointment TID. 6. obesity 7. elevated BP w/o dx of HTN - follow carefully. Consider CHAYO. 8. check GC/chlamydia via urine amp. Mega Eric MD PG Care Time/CCT Total # of Minutes Spent Total Time Spent with Patient: Total time spent is greater than 50% in coordination of care (as documented) at patient's floor/unit and/or counseling patient: Coding Level of Care Code 68976 Initial Inpt Care Lvl 3 Diagnoses Diabetes mellitus with nonketotic hyperosmolarity E11.00 Acidosis E87.2 DMII (diabetes mellitus, type 2) E11.9 Obesity E66.9 Obesity classification: adult class 2 (BMI 35 - 39.9) Hypertension I10 Hypertension type: unspecified (1) Hypertension Hypertension type: unspecified Qualified Code(s): I10 - Essential (primary) hypertension (2) Obesity Obesity classification: adult class 2 (BMI 35 - 39.9)
[2020-11-10 13:47] LABS: Magnesium 2.3 mg/dl (1.8-2.4); Phosphorus 3.2 mg/dl (2.5-4.9)
--- NOTE | 2020-11-10 13:55 | XRay Report ---
XR chest 1V portable CLINICAL HISTORY: rule out infectious process. DKA/HHNS COMPARISON STUDY: No previous studies for comparison. FINDINGS: Lung volumes are normal. Lungs are clear. There is no pneumothorax or pleural effusion. Car diac size is normal. Mediastinal contours are normal. There is no evidence for pulmonary edema. IMPRESSION: No acute cardiopulmonary findings. ACT 112: Negative or not required by law. Electronically signed by: Sarath Mckenna M.D. 11/10/2020 1:54 PM
[2020-11-10] MEDS ORDERED: LACTATED RINGER'S 1,000 ML IV SCH (14:15)
[2020-11-10] MEDS ORDERED: DC ALL PREVIOUSLY ORDERED DIABETES MEDS ONE (16:02)
[2020-11-10] MEDS ORDERED: LACTATED RINGER'S 1,000 ML IV ONE (16:02)
[2020-11-10] MEDS ORDERED: ONDANSETRON INJ 2 MG/ML 2 ML VIAL IV PRN (16:02)
[2020-11-10] MEDS ORDERED: HHS GOAL RANGE 250-350 mg/dl ONE (16:02)
[2020-11-10] MEDS ORDERED: PHARMACY GLYCEMIC MGMT CONSULT PRN (16:09)
[2020-11-10 17:31] LABS: BUN Creatinine Ratio 10.9 (10-20); Calcium 9.5 mg/dl (8.5-10.1); Creatinine Clr Calc Pharmacy 171.1 ml/min; Est GFR (Non-African American) 88.9; Phosphorus 2.4 mg/dl (2.5-4.9)
[2020-11-10] MEDS: INSULIN ASPART 100 UNITS/ML 3 ML PEN SC SCH ×4 (17:31→20:29)
[2020-11-10] MEDS: NYSTATIN CR 15 GM TUBE EXT SCH ×2 (17:33→19:56)
[2020-11-10] MEDS: MUPIROCIN 2% OINT 22 GM TUBE EXT SCH ×2 (17:33→19:55)
[2020-11-10] MEDS: NYSTATIN SUSP 500,000 U/5 ML UDC PO SCH ×2 (17:33→19:57)
[2020-11-10] MEDS: PENDING D5 1/2NS+20mEq KCL IVF SCH ×2 (17:41→17:42)
[2020-11-10] MEDS: PENDING 1/2NSS+20mEq KCL IVF SCH ×2 (17:41→17:42)
[2020-11-10] MEDS ORDERED: POTASSIUM CHLORIDE 20 MEQ in SODIUM CHLORIDE 0.45 % 1,000 ML IV SCH (19:30)
[2020-11-10 20:29] LABS: BUN Creatinine Ratio 10.1 (10-20); Calcium 9.2 mg/dl (8.5-10.1); Creatinine Clr Calc Pharmacy 157.5 ml/min; Est GFR (African American) 93.2; Est GFR (Non-African American) 80.4
[2020-11-10 20:30] LABS: Magnesium 1.8 mg/dl (1.8-2.4); Phosphorus 2.4 mg/dl (2.5-4.9); Potassium 3.7 mmol/L (3.5-5.1)
[2020-11-10 21:07] LABS: Beta-Hydroxybutyrate 24.72 mg/dl (0.2-2.81)
[2020-11-10] MEDS: D5W AND 1/2NSS + 20MEQ KCL 20 MEQ/1,000 ML BAG IV SCH (22:03)
[2020-11-11 00:56] LABS: BUN Creatinine Ratio 11.7 (10-20); Creatinine Clr Calc Pharmacy 180.4 ml/min; Est GFR (African American) 109.9; Est GFR (Non-African American) 94.8; Magnesium 1.9 mg/dl (1.8-2.4); Phosphorus 2.9 mg/dl (2.5-4.9); Potassium 3.6 mmol/L (3.5-5.1)
[2020-11-11 04:56] LABS: Calcium 8.6 mg/dl (8.5-10.1); Creatinine Clr Calc Pharmacy 196.5 ml/min; Est GFR (African American) 121.8; Est GFR (Non-African American) 105.1; Magnesium 1.7 mg/dl (1.8-2.4); Potassium 3.4 mmol/L (3.5-5.1)
[2020-11-11 04:57] LABS: Phosphorus 3.1 mg/dl (2.5-4.9)
[2020-11-11 05:07] LABS: Thyroid Stimulating Hormone 0.804 uIu/ml (0.300-4.500)
[2020-11-11 06:09] LABS: Estimated Average Glucose 407 mg/dl; Hemoglobin A1C 15.8 % (4.5-5.6)
[2020-11-11] MEDS: MUPIROCIN 2% OINT 22 GM TUBE EXT SCH (07:50)
[2020-11-11] MEDS: NYSTATIN SUSP 500,000 U/5 ML UDC PO SCH (07:50)
[2020-11-11] MEDS: NYSTATIN CR 15 GM TUBE EXT SCH (07:51)
[2020-11-11] MEDS ORDERED: INSULIN GLARGINE SOLOSTAR 100 UNITS/ML 3 ML PEN SC SCH (08:00)
[2020-11-11] MEDS ORDERED: SODIUM CHLOR 0.45% + 20MEQ KCL 20 MEQ/1,000 ML BAG IV SCH (08:00)
[2020-11-11] MEDS: INSULIN ASPART 100 UNITS/ML 3 ML PEN SC SCH ×2 (08:10→11:55)
[2020-11-11] MEDS: D5W AND 1/2NSS + 20MEQ KCL 20 MEQ/1,000 ML BAG IV SCH (08:59)
[2020-11-11] MEDS: MAGNESIUM SULFATE / D5W 1 GM/100 ML BAG IV SCH ×2 (09:00→10:40)
[2020-11-11] MEDS ORDERED: OMEGA-3 (PURIFIED FISH OIL) 1 GM CAP PO SCH (09:00)
[2020-11-11] MEDS ORDERED: FENOFIBRATE NANOCRYSTALLIZED 145 MG TABLET PO SCH (09:00)
[2020-11-11 09:06] LABS: BUN Creatinine Ratio 10.2 (10-20); Creatinine Clr Calc Pharmacy 210.5 ml/min; Est GFR (African American) 126.3; Magnesium 1.7 mg/dl (1.8-2.4); Phosphorus 2.6 mg/dl (2.5-4.9); Potassium 3.4 mmol/L (3.5-5.1)
[2020-11-11 09:26] LABS: Beta-Hydroxybutyrate 12.59 mg/dl (0.2-2.81)
--- NOTE | 2020-11-11 09:52 | Pharmacy Report ---
Pharmacy Glycemic Short Note 2 - Date of Service November 11, 2020 - Glycemic Short BSG Results (Last 24 hours): 11/10/20 11/10/20 11/10/20 10:44 10:45 10:50 Glucose 783 H* POC Glucose > 600 H* > 600 H* POC Glucose (other) 11/10/20 11/10/20 11/10/20 10:50 11:54 12:51 Glucose POC Glucose > 600 H* 456 H* POC Glucose (other) > 700 H* 11/10/20 11/10/20 11/10/20 14:24 15:18 16:19 Glucose POC Glucose 377 H* 394 H* 354 H* POC Glucose (other) 11/10/20 11/10/20 11/10/20 17:02 17:15 18:12 Glucose 264 H POC Glucose 284 H 450 H* POC Glucose (other) 11/10/20 11/10/20 11/10/20 19:24 19:41 20:20 Glucose 305 H* POC Glucose 343 H* 295 H POC Glucose (other) 11/10/20 11/10/20 11/10/20 21:23 22:32 23:22 Glucose POC Glucose 302 H* 315 H* 301 H* POC Glucose (other) 11/11/20 11/11/20 11/11/20 00:30 01:23 03:41 Glucose 273 H POC Glucose 293 H 259 H POC Glucose (other) 11/11/20 11/11/20 11/11/20 04:23 07:26 08:15 Glucose 268 H 307 H* POC Glucose 263 H POC Glucose (other) OUTPATIENT ANTIDIABETIC REGIMEN: * Metformin 1000 mg BID- per provider notes recently restarted * A1c 15.8% 11/11/20 ASSESSMENT: * AR was admitted 11/10 with [facility], history of type II diabetes, started on insulin infusion currently running at 6 units/hr * This morning anion gap has closed, bicarb 25, patient was been within goal range of 250-350 mg/dL, has diet ordered and ate last PM * Will start to transition off of insulin infusion this morning, removed dextrose from IVF, changed goal range on insulin infusion to 150-250 mg/dL (higher goal as patient's A1c indicates high BSGs outpatient, may not tolerate rapid lowering of BSG, prefer gradual reduction), 50 units of lantus x 1 (this is between weight based stress of 2/3 adjusted body weight (~17% less than half of insulin infusion avg. rate). Carb ratio set to 1 unit for every 4 gm of CHO. * Will discontinue insulin infusion when patient is within goal range x 2 and drip rate running < 1.5 units/hr PLAN FOR INPATIENT GLYCEMIC CONTROL: * Hold outpatient oral diabetes medications * Continue insulin infusion for now with goal range 150-250 * Basal insulin * Lantus 50 units SQ x1 * Bolus insulin- to begin after transition * NovoLog per scale ACHS or Q6hrs while NPO * Goal Range: Low 140 mg/dL - High 220 mg/dL * Correction Factor: 15 mg/dL/unit * Nutritional / Prandial insulin per carb ratio of 1 unit per 4 grams CHO consumed PLAN FOR DISCHARGE: * A1c 15.8% above goal of A1c <7%. Consider triple therapy with metformin + basal insulin + (GLP1-RA OR prandial insulin). Further dosing recommendations tbd. * Support Patient Self-Management * Healthy Lifestyle (diet,exercise) * Disease self-management * Prevention of complications (BP, Lipid goals, Immunizations) * Consider outpatient Diabetes Self-Management Educations & Support * Self Monitor Blood Glucose * Prior to meals and snack * At bedtime * Prior to exercise * when they suspect low blood glucose * After treating low blood glucose until they are normoglycemic * Prior to critical tasks such as driving *
--- NOTE | 2020-11-11 12:32 | Discharge Summary ---
Date of Service date of admission - November 10, 2020 date of discharge - November 11, 2020 Admission HPI Per Admitting Provider 20yo AA male with significant history of new onset of diabetes in March 2020 which resulted in patient going into diabetic coma, hyperglycemia and rhabdomyolysis. This ordeal occurred in [place], and he was discharged on Metformin after being diagnosed as type II. The patient states that he stopped his Metformin a couple of months ago, because he didn't feel as he needed it. Patient just recently started taking his metformin again starting on Wednesday because of the way he was feeling. 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 The patient started feeling fatigued, nauseated, and drinking more; which prompted him to come to the emergency room. In the ER the patient was noted to be hyperglycemic >600, with a HCO3 of 19. The patient denies any other feelings of illness, or any other associated symptoms. The patient was started on insulin drip with bolus, given 2L 0.9% saline, and CT scan of head was performed for complaint of dizziness. CT head was negative. Principal Diagnosis 1. DKA 2. Severely uncontrolled diabetes mellitus, hemoglobin a1c 15.8% Discharge Exam Constitutional + morbidly obese; no acute distress and no altered mental status ENMT Mouth: + oral mucosal abnormality (Mild thrush) Respiratory normal respiratory effort, lungs clear to auscultation Cardiovascular Rate/Rhythm: regular rate and regular rhythm Heart Sounds: normal S1 and normal S2; no murmur Vessels: posterior tibial pulses present and dorsalis pedis pulses present; no JVD Extremities: no edema Gastrointestinal (Abdomen) normal bowel sounds, soft, nontender, no hepatosplenomegaly Skin folliculitis groin region Psychiatric Orientation: alert and oriented x 3 Genitourinary candidal balanitis Discharge Data Allergies Allergy/AdvReac Type Severity Reaction Status Date / Time No Known Allergies Allergy Unverified 11/10/20 11:00 Consultations nutrition diabetes education (unfortunately patient left AMA prior to educator performing consult) Ordered Studies 11/10/20 10:37 CT head/brain wo con Stat - negative for acute findings Hospital Course (1) DKA (diabetic ketoacidoses): Patient had evidence of DKA with severely elevated blood glucose, ketonuria, anion gap metabolic acidosis, and low serum bicarbonate. He was treated in the customary fashion with IV fluids, IV insulin, and electrolyte replacement. Anion gap closed, JUAN resolved, and serum bicarbonate normalized. Blood glucose levels improved but never were below 200 on a sustained basis even despite IV insulin. On 11/11/20 attempts were made to wean him off the insulin dip. SC insulins were initiated. During the afternoon of 11/11/20 the patient demanded hospital discharge. He was counseled that his insulin drip was still going, his blood glucose levels were still very high, and that he risked recurrent DKA. Despite this queen's counsel he refused to remain hospitalized, stating he needed to get back to [place] and that he had limited options for a ride back home. Against medical advice ("AMA") paper work was completed in the presence of his nurse. An exception was made to give him prescriptions for his lantus/novolog along with pen needles. By the time these written prescriptions were completed he had already left the hospital - he did not wait for the prescriptions. Thus, the only medication he will be taking immediately post-discharge is metformin. On the AMA paperwork he was advised to f/u with his PCP [place] upon return to [place] for DM management. (2) Uncontrolled diabetes mellitus: HbA1C was nearly 16%. See discussion above. (3) Acute kidney injury: Peak Cr 1.55, improving to 0.98 at discharge. 2nd to severe dehydration in setting of DKA. (4) Obesity (BMI 30-39.9): BMI 39.5 (5) Hypertriglyceridemia: Triglycerides were nearly 800 on lipid profile. He was counseled about the dangers of triglycerides being this high including pancreatitis, cardiovascular risk, etc. Recommended that he speak with his PCP about treatment. (6) Balanitis: 2nd to uncontrolled DM. Candidal. nystatin TID x 7-10 days. (7) Candidiasis of mouth and esophagus: 2nd uncontrolled DM. Nystatin liquid x 7-10 days. (8) Noncompliance: Severe noncompliance with DM diet, medications, and his overall health care plan. (9) Elevated blood pressure reading without diagnosis of hypertension: Systolic BP readings were 130s to 150s. F/u PCP in [place] for this. (10) Screening for STD (sexually transmitted disease): At his request GC and chlamydia testing was dispatched. Urine amp for GC/chlamydia returned negative. Total Time Total Time Spent Total Time Spent (In Minutes): 45 Total Time Includes: Examination of the Patient, Discharge Planning and Medication Reconciliation Discharge Plan Discharge Items Patient Disposition: Against Medical Advice Reason For Visit: HHNS Condition on Discharge: Fair Activity: Resume your previous activity Non-emergency contact: Primary Care Provider Follow-up/Referrals: BREANA FAYE [Other] (Please call Dr Faye within 24 hours upon return to [place] for diabetes management) Addtl Compensation Supervisor Provider Instructions: Despite uncontrolled blood sugars and ongoing use of IV insulin ("insulin drip") you have chosen to leave against medical advice ("AMA"). At minimum you are in need of ongoing hospitalization for another 24 hours to achieve safer blood sugar control. You are at risk of ongoing high sugars, diabetic coma, and even . By signing the AMA form you assume ALL responsibility for your health including, but not limited to, the risks noted above. Your hemoglobin a1c was 15.8%. This means that your blood sugars have been wildly uncontrolled for months. Your goal is less than 7%. You cannot achieve the goal of less than 7% with metformin alone -- your body desperately needs insulin. Take the following - * lantus 50 units once daily in the morning - start tomorrow morning * novolog with breakfast, lunch, and dinner; take 25 units at the start of each of these meals * resume your metformin as previous Further insulin adjustments will need to be made by Dr Faye or her partners. You also have VERY HIGH blood triglycerides - a form of fat. Normal levels of triglyerides is less than 150. Your level was 799. This is also dangerously high. Please speak to Dr Faye about this [place]; you need medication for the high fat levels. Any glucometer, test strips, and other diabetic supplies will need to be obtained from Dr Faye upon return to [place]. Again you are leaving against medical advice. Pending Studies at Discharge: Yes Stand-Alone Forms: My [employer], Smoking Cessation Skilled Items Patient informed of condition?: Yes DNR: No Discharge Level of Care: Other Communicable Disease: No Discharge Prognosis: Other Medications and DC Order Prescriptions: New nystatin 100,000 unit/mL Suspension 5 ml PO QID 7 Days Qty: 140 RF: 0 nystatin 100,000 unit/gram Cream 1 applic EXT TID Qty: 1 RF: 0 mupirocin 2 % Ointment 1 applic EXT TID Qty: 1 RF: 0 insulin aspart U-100 [Novolog Flexpen U-100 Insulin] 100 unit/mL (3 mL) Insulin Pen 25 unit SC AC Qty: 5 RF: 0 Lantus Solostar U-100 Insulin 100 unit/mL (3 mL) Insulin Pen 50 unit SC QAM Qty: 5 RF: 0 (DME) pen needle, diabetic [BD Ultra-Fine Yane Pen Needle] 32 gauge x 5/32" needle See Rx Instructions .ROUTE .MEDSUPPLY Qty: 100 RF: 0 Continued metformin 1,000 mg Tablet 1,000 mg PO BID RF: 0 Discharge Orders: Left Against Medical Advice (Routine); Ordered 11/11/20 Ordered By: Mega Eric Admission Data Admit Date/Time: 11/10/20 15:50 Attending Provider: Mega Eric Admit Provider: Mega Eric Primary Care Provider: Breana Faye Other Providers: Mega Eric Other Interventions: Discharge Summary Assessment (RN) Last Done: 11/11/20 12:51 Coding Level of Care Code D/C Day Management >30 mins Diagnoses DKA (diabetic ketoacidoses) E13.10 Diabetes mellitus complication detail: without coma Diabetes mellitus type: other specified (including YANELY) Uncontrolled diabetes mellitus E11.65 Acute kidney injury N17.9 Obesity (BMI 30-39.9) E66.9 Hypertriglyceridemia E78.1 Balanitis N48.1 Candidiasis of mouth and esophagus B37.81; B37.0 Noncompliance Z91.19 Elevated blood pressure reading without diagnosis of hypertension R03.0 Screening for STD (sexually transmitted disease) Z11.3
[2020-11-12 13:37] LABS: Chlamydia Trach RNA NOT DETECTED (NOT DETECTED); GC (Neis gonorrhoeae) RNA NOT DETECTED (NOT DETECTED)
== END 2020-11-11 12:54 | disposition left against medical advice (07) | DRG 638 ==
LOC: ED 10:19 → 2S 14:51